=== PATIENT | male | born 1980 | race African-American/Black ===

== ENCOUNTER 2017-05-19 12:48 | Emergency (ER) | payer MEDICAID ==
[~2017-05-19] VITALS: Ht 177.8 cm; Wt 81.0 kg
[2017-05-19] MEDS ORDERED: SODIUM CHLORIDE 0.9% 1,000 ML IV ONE (14:30)
[2017-05-19] MEDS ORDERED: ONDANSETRON HCL 4MG/2ML VIAL IV STA (14:30)
[2017-05-19] MEDS ORDERED: KETOROLAC 30MG/ML VIAL IV STA (14:30)
[2017-05-19 15:11] LABS: BASOPHILS % 0.9 % (0.0-2.0); EOSINOPHILS % 0.1 % (0.0-5.0); HEMATOCRIT. 45.5 % (42.0-52.0); HEMOGLOBIN. 15.7 g/dL (14.0-18.0); MEAN CORPUSCULAR HEMOGLOBIN 30.9 pg (28.0-32.0); MEAN CORPUSCULAR VOLUME 89.6 fL (80.0-94.0); PLATELET 296 x1000/uL (130-400); RED BLOOD CELL COUNT 5.08 mill/uL (4.7-6.1); RED CELL DISTRIBUTION WIDTH 14.7 % (11.6-14.6)
[2017-05-19 15:24] LABS: CARBON DIOXIDE 27 mEq/L (21-32); CHLORIDE 101 mEq/L (98-107); ETHANOL BLOOD < 10 mg/dL
[2017-05-19 15:59] LABS: CLARITY URINE CLEAR (CLEAR); COLOR URINE YELLOW (YELLOW); GLUCOSE URINE NEGATIVE (NEGATIVE); KETONES URINE 2+ (NEGATIVE); LEUKOCYTE ESTERASE URINE TRACE (NEGATIVE); NITRITE URINE NEGATIVE (NEGATIVE); OCCULT BLOOD URINE TRACE (NEGATIVE); PROTEIN URINE 1+ (NEGATIVE); SPECIFIC GRAVITY URINE 1.026 (1.005-1.030)
[2017-05-19 16:24] LABS: *AMPHETAMINES SCREEN URINE NEGATIVE (NEGATIVE); *BARBITURATES SCREEN URINE NEGATIVE (NEGATIVE); *BENZODIAZEPINES SCREEN URINE NEGATIVE (NEGATIVE); *COCAINE SCREEN URINE NEGATIVE (NEGATIVE); CANNABINOID URINE SCREEN PRESUMTIVE POSITIVE (NEGATIVE); METHADONE URINE SCREEN NEGATIVE (NEGATIVE); OPIATES URINE SCREEN NEGATIVE (NEGATIVE); PHENCYCLIDINE URINE SCREEN NEGATIVE (NEGATIVE)
[2017-05-19 16:49] VITALS: BP 133/73
== END 2017-05-19 17:05 | disposition home or self-care (01) ==
LOC: ER 13:42
DX: R10.84 Generalized abdominal pain (principal); R11.2 Nausea with vomiting, unspecified; F17.210 Nicotine dependence, cigarettes, uncomplicated
CPT/HCPCS: 36415; 80053; 80305; 81001; 83690; 85025; 96361; 96374; 96375; 99284; G0482; J1885; J2405; J7030; Z7610

== ENCOUNTER 2018-01-22 08:40 | Emergency (ER) | payer MEDICAID ==
[~2018-01-22] VITALS: Ht 177.8 cm; Wt 77.0 kg
[2018-01-22] MEDS ORDERED: IBUPROFEN 600MG TABLET PO ONE (09:15)
[2018-01-22 09:52] VITALS: BP 134/92
== END 2018-01-22 09:52 | disposition home or self-care (01) ==
LOC: ER 08:40
DX: M65.4 Radial styloid tenosynovitis [de Quervain] (principal); M65.9 Synovitis and tenosynovitis, unspecified
CPT/HCPCS: 99283

== ENCOUNTER 2019-04-19 09:14 | Inpatient (IN) | payer MEDICAID ==
[~2019-04-19] VITALS: Ht 177.8 cm; Wt 72.1 kg
[2019-04-19] MEDS ORDERED: SODIUM CHLORIDE 0.9% 1,000 ML IV ONE (10:25)
[2019-04-19 11:00] LABS: HEMATOCRIT. 41.4 % (42.0-52.0); MEAN CORPUSCULAR HEMOGLOBIN 30.3 pg (28.0-32.0); MEAN CORPUSCULAR VOLUME 89.5 fL (80.0-94.0); MEAN PLATELET VOLUME 7.1 fl (7.4-10.4); PLATELET 292 x1000/uL (130-400); RED BLOOD CELL COUNT 4.62 mill/uL (4.7-6.1); RED CELL DISTRIBUTION WIDTH 13.8 % (11.6-14.6)
[2019-04-19 11:06] LABS: PROTHROMBIN TIME 10.4 sec (9.6-11.0)
[2019-04-19 11:08] LABS: CHLORIDE 105 mEq/L (98-107)
[2019-04-19] MEDS ORDERED: SODIUM CHLORIDE 0.9% 1000ML BAG (SEPSIS BOLUS) IV ONE (11:15)
[2019-04-19] MEDS ORDERED: PIPERACILLIN/TAZ 3.375G PREMIX 50 ML IV ONE (11:15)
[2019-04-19 11:31] LABS: PLATELET ESTIMATE NORMAL
[2019-04-19 11:32] LABS: CLARITY URINE CLEAR (CLEAR); COLOR URINE YELLOW (YELLOW); KETONES URINE 2+ (NEGATIVE); LEUKOCYTE ESTERASE URINE TRACE (NEGATIVE); NITRITE URINE NEGATIVE (NEGATIVE); OCCULT BLOOD URINE TRACE (NEGATIVE); PH URINE 5.5 (4.5-8.0); PROTEIN URINE TRACE (NEGATIVE); SPECIFIC GRAVITY URINE 1.013 (1.005-1.030); UROBILINOGEN URINE 0.2 E.U./dL (0.2-1.0)
[2019-04-19] MEDS ORDERED: PIPERACILLIN/TAZOBACTAM 3.375 G in DEXT 5% WATER 100 ML IV SCH (11:45)
[2019-04-19] MEDS ORDERED: ACETAMINOPHEN 325MG TABLET PO PRN (13:30)
[2019-04-19] MEDS ORDERED: HYDROCODONE/ACETAMINOPHEN 5/325MG TABLET PO PRN (13:30)
[2019-04-19] MEDS ORDERED: MORPHINE SULFATE 2 MG/ML CPJ (NOT FOR IM USE) IV PRN (13:30)
[2019-04-19] MEDS ORDERED: ONDANSETRON HCL 4MG/2ML INJ IV PRN (13:30)
[2019-04-19] MEDS ORDERED: IOHEXOL-300 100 ML BOTTLE ONE (14:29)
[2019-04-19 15:00] VITALS: BP 123/75
[2019-04-19] MEDS ORDERED: NICOTINE 14MG PATCH TD NR (15:00)
[2019-04-19 15:21] VITALS: BP 123/75
[2019-04-19] MEDS: SODIUM CHLORIDE 0.9% 1,000 ML IV SCH (17:36)
[2019-04-19] MEDS: PIPERACILLIN/TAZOBACTAM 3.375 G in DEXT 5% WATER 100 ML IV SCH (17:47)
[2019-04-19] MEDS ORDERED: METRONIDAZOLE 1000 MG PREMIX 200 ML IV NR (22:30)
[2019-04-20] VITALS: BP 137/83
[2019-04-20] MEDS: PIPERACILLIN/TAZOBACTAM 3.375 G in DEXT 5% WATER 100 ML IV SCH ×3 (00:12→12:29)
[2019-04-20] MEDS ORDERED: METRONIDAZOLE 500MG TABLET PO NR (01:00)
[2019-04-20 04:00] VITALS: BP 136/85
[2019-04-20] MEDS: SODIUM CHLORIDE 0.9% 1,000 ML IV SCH (04:23)
[2019-04-20 08:00] VITALS: BP 130/82
[2019-04-20 08:07] LABS: *AMPHETAMINES SCREEN URINE NEGATIVE (NEGATIVE); *BARBITURATES SCREEN URINE NEGATIVE (NEGATIVE); *BENZODIAZEPINES SCREEN URINE NEGATIVE (NEGATIVE); *COCAINE SCREEN URINE NEGATIVE (NEGATIVE); CANNABINOID URINE SCREEN PRESUMTIVE POSITIVE (NEGATIVE); OPIATES URINE SCREEN NEGATIVE (NEGATIVE); PHENCYCLIDINE URINE SCREEN NEGATIVE (NEGATIVE)
[2019-04-20 08:08] LABS: METHADONE URINE SCREEN NEGATIVE (NEGATIVE)
[2019-04-20 08:10] LABS: HEPATITIS B SURFACE ANTIGEN NEGATIVE
[2019-04-20 08:37] LABS: HEPATITIS A AB IGM NEGATIVE (NEGATIVE)
[2019-04-20] MEDS ORDERED: NICOTINE 14MG PATCH TD SCH (09:00)
[2019-04-20 10:13] LABS: BASOPHILS % 1.4 % (0.0-2.0); EOSINOPHILS % 0.3 % (0.0-5.0); HEMATOCRIT. 40.9 % (42.0-52.0); LYMPHOCYTES % 17.7 % (20.0-50.0); MEAN CORPUSCULAR HEMOGLOBIN 30.8 pg (28.0-32.0); MEAN CORPUSCULAR VOLUME 90.3 fL (80.0-94.0); MEAN PLATELET VOLUME 7.6 fl (7.4-10.4); MONOCYTES % 6.5 % (2.0-8.0); NEUTROPHILS % 74.1 % (40.0-76.0); PLATELET 287 x1000/uL (130-400); RED BLOOD CELL COUNT 4.54 mill/uL (4.7-6.1); RED CELL DISTRIBUTION WIDTH 14.1 % (11.6-14.6)
[2019-04-20 10:26] LABS: CHLORIDE 110 mEq/L (98-107)
[2019-04-20 12:00] VITALS: BP 182/92
[2019-04-20 12:40] VITALS: BP 142/93
[2019-04-20] MEDS ORDERED: NICO-645 TP (13:29)
[2019-04-20] MEDS ORDERED: LEVO500T2 MT (13:29)
[2019-04-20 16:00] VITALS: BP 136/85
[2019-04-21 08:07] LABS: HIV SCREEN 4G Non Reactive (Non Reactive)
[2019-04-22 05:09] LABS: CHLAMYDIA TRACHOMATIS NAA Negative (Negative); NEISSERIA GONORRHOEAE NAA Negative (Negative)
== END 2019-04-20 17:55 | disposition home or self-care (01) | DRG 720 ==
LOC: ER 09:14 → 7WST 12:42 → EDBEDREQSVC 12:45 → EDBEDREQ 12:45 → ENRESERV 13:59
PROVIDERS: ADMIT Internal Medicine; ATTEND Internal Medicine
DX: A41.9 Sepsis, unspecified organism (principal); E87.2 Acidosis; A59.9 Trichomoniasis, unspecified; F12.90 Cannabis use, unspecified, uncomplicated; F17.210 Nicotine dependence, cigarettes, uncomplicated; K76.0 Fatty (change of) liver, not elsewhere classified; R65.20 Severe sepsis without septic shock; Z90.49 Acquired absence of other specified parts of digestive tract; N39.0 Urinary tract infection, site not specified; Z71.6 Tobacco abuse counseling; R19.7 Diarrhea, unspecified
CPT/HCPCS: 36415; 71045; 74177; 80048; 80305; 81003; 83605; 84145; 86592; 86705; 86709; 86803; 87015; 87045; 87340; 87389; 87427; 87449; 87491; 87493; 87591; 87804; 89055; 93005; 99285; J2543; J3490; J7030; J7060; Q9967